=== PATIENT | female | born 1985 | race Caucasian/White ===

== ENCOUNTER 2017-06-29 02:28 | Inpatient (IN) | payer OTHER ==
[~2017-06-29] VITALS: Ht 166.4 cm; Wt 105.7 kg
[2017-06-29] MEDS ORDERED: Sodium Chloride LOK Flush 10 mL Syringe IVFLUSH PRN ×2 (08:00)
[2017-06-29] MEDS ORDERED: diphenhydrAMINE 50 mg Capsule PO PRN (08:00)
[2017-06-29] MEDS ORDERED: Oxytocin 30 Units/500 mL LR 30 UNITS in IV Premix 1 EACH IV PRN ×2 (08:00→18:20)
[2017-06-29] MEDS ORDERED: Ondansetron 2 mg/mL 2 mL Inj IVPUSH PRN (08:00)
[2017-06-29] MEDS ORDERED: Methylergonovine 0.2 mg/mL Inj IM PRN (08:00)
[2017-06-29] MEDS ORDERED: Carboprost 250 mCg/mL Inj IM PRN (08:00)
[2017-06-29] MEDS ORDERED: Oxytocin 10 Unit/mL Inj IM PRN (08:00)
[2017-06-29] MEDS ORDERED: Hemorrhage Kit, Post Partum XX ONE (08:00)
[2017-06-29] MEDS ORDERED: Misoprostol 25 mCg/0.25 Tablet VAGINAL SCH (08:00)
[2017-06-29 08:15] LABS: Mean Corpuscular Hemoglobin 29.7 pg (27.0-35.0); Mean Corpuscular Volume 85.4 fL (81-100)
--- NOTE | 2017-06-29 08:38 | HP ---
[address] [address] HISTORY AND PHYSICAL PATIENT: CARSON JURADO : 1985 MR#: [id number] ADMIT: 06/29/2017 JOB ID: [id number] CHIEF COMPLAINT: Presents for induction due to post term . HISTORY OF PRESENT ILLNESS: A 31-year-old, 1 para 0, with an EDC of June 17, 2017, based on LMP of September 09, 2016, and a concordant ultrasound December 01, 2016, putting her at 12 weeks and two days (for an EDC of June 13, 2017), who presents at 40-5/7 weeks gestation for planned induction. She is GBS negative by recent screening. She has had occasional contractions on the monitor last week, but not felt regularly. LABORATORIES: Blood type O positive. Rubella immune. Serology nonreactive. Hepatitis B surface antigen, HIV test negative at the onset of . Hematocrit at 33 weeks was 31.9, at 9-5/7 weeks was 39.5. Antibody screen negative, RPR nonreactive. Urine culture showed mixed sukhdeep at the onset of . An A1c was 5.1. She declined risk testing. Glucose tolerance test at 33 weeks showed a fasting of 75, a one hour of 162, a 2 hour of 109. Gonorrhea and Chlamydia cultures were negative in December of this year. She is GBS negative screened May 21, 2017. Pap was normal in December of this year. PAST GYNECOLOGIC HISTORY: 1 para 0. ISSUES: 1. Excess weight. 2. LATEX allergy. 3. Needs a Pap. 4. Prior low-lying placenta on an January 26 ultrasound, which resolved by a April 03 ultrasound. 5. Late to do her 2 hour glucose tolerance test. CURRENT MEDICATIONS: 1. vitamins, 1 tablet daily. 2. Ferrous sulfate 325 mg p.o. b.i.d. ALLERGIES: LATEX. SOCIAL HISTORY: She is . Nonsmoker. Stopped any alcohol once . Denies recreational drug use. FAMILY HISTORY: An older brother with thyroid cancer. Otherwise noncontributory. PAST SURGICAL HISTORY: Tonsillectomy at age 13. REVIEW OF SYSTEMS: She has felt movement. She is a bit tired. PHYSICAL EXAMINATION: Blood pressure 123/74, pulse is 74, other vitals are pending as the patient is just being admitted. Her cervical examination done by myself shows her to be 1 cm dilated, 50% effaced, -3 station, mid-position, moderate firmness. By Placido's done in the office, infant is in vertex position, this is confirmed by vaginal exam today. Estimated weight in the high 7 range. heart tracing shows a baseline in the 130s, with numerous accelerations, at least 15 x 15, consistent with a category 1 tracing. ASSESSMENT: 1. Gravid at 41-5/7 weeks. 2. Group B Strep negative. 3. Excess weight. 4. LATEX allergy; this causes itching. PLAN: We have been discussing the options, including observation versus induction, and the patient has already signed a consent for induction. In the office we reviewed the benefits and alternatives as well as risks of induction including distress and a higher risk of . The plan is for misoprostol and then further intervention based on clinical response, which could include additional misoprostol, balloon Barfield ripening, or oxytocin IV. The case was discussed with Dr. Jo, on-call for LINK TRAINER and backup. Questions answered. Plan reviewed with the patient, her and her mother. RINKU
--- NOTE | 2017-06-30 01:51 | PCM.HPANE ---
Patient Data Date of Service: Jun 30, 2017 Surgeon Admitting Provider:Chip Mccollum MD Attending Provider:Chip Mccollum MD Primary Care Physician:Chip Mccollum MD Other Provider: Reason for Visit Induction INDUCTION Ht/WT & BMI Height (Centimeters): 166.3 Weight (Kilograms): 105.7 Body Mass Index 38.2 Allergies Coded Allergies: latex (Unverified Allergy, Unknown, 06/29/17) Diabetes History Hx Diabetes?: No Medications Hypertension Medication: No Home Meds Incl Beta Lori: No History History of ENT Problems?: No HEENT History: Denies:: Abnormal Airway Denture Type: None Teeth Condition: Within Normal Limits Hx of Heart Problems?: No Cardiovascular History: Denies:: Hypertension Valvular Heart Disease Hx of Respiratory Problem?: No Respiratory History: Denies:: Asthma Hx Neurologic Problems?: No Neurological History: Denies:: Peripheral Neuropathy Seizures Hx of GI Problems?: No Hx of Problems?: No Female Hx: Positive for:: Currently Hx Musculoskeletal Problems?: No Smoking Status: Never Smoker Stop/Bang Risk Assessment Category Category 1A: Patient has history of documented sleep apnea, and HAS NOT received any narcotic, sedative or anesthesia administration during this stay. Category 1B: Patient has history of documented sleep apnea, and HAS received any narcotic , sedative or anesthesia administration during this stay Category 2: Patient has SUSPECTED Obstructive Sleep Apnea, and HAS received any narcotic , sedative or anesthesia administration during this stay. Category 3: Patient has SUSPECTED Obstructive Sleep Apnea and HAS NOT received narcotic, sedative or anesthesia administration during this stay. Category 4: Outpatient in Procedural Areas with known sleep apnea or who screen positive for High Risk via the STOP/BANG questionnaire. Exam Exam General Appearance: Alert, Oriented X3, Cooperative, No Acute Distress HEENT/AIRWAY: MP 2 Lungs: Clear to Auscultation, Normal Air Movement Heart: Exam Unremarkable, Regular Rate/Rhythm, No Murmurs/Rubs/Gallops Meds/Labs/Diagnostics Admission Meds Current Medications Misoprostol (Cytotec) 25 mcg Q4H VAGINAL Last administered on 06/29/17t 08:30; Start 06/29/17 at 08:00 Labs Test 06/29/17 08:00 White Blood Count 7.8th/mm3 (3.8-10.1) Red Blood Count 4.24mil/mm3 (3.90-5.20) Hemoglobin 12.6g/dL (12.0-15.6) Hematocrit 36.2% (35.0-46.0) Mean Corpuscular Volume 85.4fL (81-100) Mean Corpuscular Hemoglobin 29.7pg (27.0-35.0) Mean Corpuscular Hemoglobin Concent 34.8% (32.0-37.0) Red Cell Distribution Width 15.2% (12.3-15.4) Platelet Count 233bil/L (150-400) Plan Impression Patient chart reviewed, patient interviewed and anesthestic plan with risks, benefits, and alternatives discussed, and informed consent obtained. ASA Physical Status: ASA2 Mod Systemic Disease Anesthetic Plan: Epidural (labor) Javi Banks MD Jun 30, 2017 01:51
[2017-06-30] MEDS: fentaNYL-PF 50 mCg/mL 2 mL Inj IVPUSH PRN ×2 (02:08→04:39)
[2017-06-30] MEDS: Lactated Ringer's 1,000 ML IV PRN ×3 (02:08→10:53)
--- NOTE | 2017-06-30 07:40 | PROG NOTE ---
[address] [address] PROGRESS NOTE PATIENT: CARSON JURADO : 1985 MR#: [id number] ADMIT: 06/29/2017 JOB ID: [id number] DATE: 06/30/2017 SUBJECTIVE: I was contacted by nursing due to concerns about heart rate tracing. Patient had a period off the monitor around 9 p.m. yesterday. When placed back on the monitor heart rate baseline seemed to have lowered and there were some decelerations to as low as the 80s with recovery. Positional changes were attempted as well as oxygen and a fluid bolus. Patient is currently not receiving any additional augmentation or uterine stimulation. Last vital signs at 2345 show blood pressure 129/68, heart rate 62, temperature 97.0. She is a tired appearing, actively laboring young woman. Cervical examination is not repeated by myself and it was just reported by nursing at 4 cm, 75%, -3 station. heart rate trace lying shows a baseline that now appears to be in the 110, sometimes 120s at present. When I arrive there is improved long and short-term variability. A little after midnight there are several periods of what may be decelerations lasting 3-4 minutes down to the 80s with recovery. Variability persists throughout all of this. Tocometer shows regular contractions every 1-3 minutes which palpate moderately firm. ASSESSMENT: 1. Gravid at 41-6/7 weeks. 2. heart rate tracing baseline change with a question of some decelerations. Variability currently appears excellent and there are no recurrent or late decelerations. 3. Cervical change after one dose of misoprostol, she appears to be entering more active labor. PLAN: Given the adequate response to resuscitative measures, I feel she can continue to labor without change in plan. Strip was reviewed with Dr. Jo electronic semiconductor processor for [employer] UP OPERATOR who concurs this appears to be simply a change in baseline and the prior decelerations have resolved. Patient is contemplating an epidural and nursing will contact anesthesia if she decides to proceed with this. [facility]
--- NOTE | 2017-06-30 08:27 | PROG NOTE ---
[address] [address] PROGRESS NOTE PATIENT: CARSON JURADO : 1985 MR#: [id number] ADMIT: 06/29/2017 JOB ID: [id number] DATE: 06/29/2017 SUBJECTIVE: The patient was domonique too much today to receive a 2nd dose of misoprostol, but not making significant cervical change. When I come around 6 p.m., we discussed the option of Barfield balloon catheter, which she is agreeable in trying. The other option would be to simply wait more time or to go home and come back tomorrow for additional attempts at induction. She prefers to move forward at this point. PHYSICAL EXAMINATION: Last blood pressure at three this afternoon, 135/68, pulse 93. Alert, gravid woman, not in significant distress. Sterile speculum exam shows her cervix is quite posterior but reachable with a balloon Barfield catheter which is placed using sterile technique. Both balloons inflated to 80 cc. About 5 minutes after placement, the patient got up to go to the bathroom, noted the balloon had simply fallen out. Cervical examination at that point showed her to be 2 cm, 70% effaced, -3 station, vertex position. heart tracing continues to show a good long and short-term variability with accelerations. ASSESSMENT: 1. Gravid at 41-5/7 weeks. 2. Initial good response to misoprostol, but no significant cervical change despite frequent contractions. 3. Balloon Barfield catheter attempted but came out shortly thereafter. PLAN: Discussed options. Given that her contractions are spacing out, we discussed Cervidil overnight, followed by oxytocin augmentation. RINKU
--- NOTE | 2017-06-30 10:21 | PROG NOTE ---
[address] [address] PROGRESS NOTE PATIENT: CARSON JURADO : 1985 MR#: [id number] ADMIT: 06/29/2017 JOB ID: [id number] DATE: 06/30/2017 SUBJECTIVE: Overnight patient's contractions have spaced out. She remains 4 cm dilated the prior heart rate baseline drop seems to have returned to normal and prior decelerations have essentially resolved. The patient is tired, but her pain is adequately controlled. She did receive two doses of fentanyl and get some sleep overnight. PHYSICAL EXAMINATION: Blood pressure 137/77, pulse 80, temperature 97.9 Fahrenheit at 7:30 this morning. Tired-appearing gravid woman vaginal exam not repeated as it was just done by nursing, about half an hour ago showing her 4 cm, 70% effaced, -3 station. Membranes intact. heart tracing shows a category one strip with a baseline of 120 and numerous accelerations good long and short-term variability. Tocometer shows contractions every 5-7 minutes still palpating moderately firm. ASSESSMENT: 1. Gravid at 41 and 6/7 weeks. 2. GBS negative. 3. heart rate tracing baseline change around midnight with a question of some decelerations, this appears to have resolved. PLAN: The patient would like to continue to proceed towards delivery, primary indication is post term . Oxytocin augmentation is started at 2 milliunits per protocol; case discussed with Dr. Rodriguez on-call for backup. Case was also discussed yesterday with Dr. Jo and who concurred with ripening followed by augmentation. I contemplated rupture of membranes, however, given the baseline change overnight decided to leave them intact for now. If she does not make clinical progress, this would be an additional option to move towards delivery. RINKU
[2017-06-30] MEDS ORDERED: fentaNYL 2 mCg/mL-Bupivicaine 0.125% 100 mL Premix EPIDURAL ONE (14:52)
[2017-06-30] MEDS ORDERED: fentaNYL-PF 50 mCg/mL 2 mL Inj IVPUSH PRN (15:05)
[2017-06-30] MEDS ORDERED: Atropine 1 mg/10 mL (Code) Syringe IVPUSH PRN (15:05)
[2017-06-30] MEDS ORDERED: Lactated Ringer's 1,000 ML IV SCH (15:05)
[2017-06-30] MEDS ORDERED: Lactated Ringer's 500 ML IV ONE (15:05)
[2017-06-30] MEDS ORDERED: Ondansetron 2 mg/mL 2 mL Inj IVPUSH PRN (15:05)
[2017-06-30] MEDS ORDERED: EPHEDrine Sulfate 50 mg/mL Inj IVPUSH PRN (15:05)
--- NOTE | 2017-06-30 15:05 | PCM.HPANE ---
Patient Data Date of Service: Jun 30, 2017 Surgeon Admitting Provider:Chip Mccollum MD Attending Provider:Chip Mccollum MD Primary Care Physician:Chip Mccollum MD Other Provider: Reason for Visit Induction INDUCTION Ht/WT & BMI Height (Centimeters): 166.3 Weight (Kilograms): 105.7 Body Mass Index Allergies Coded Allergies: latex (Unverified Allergy, Unknown, 06/29/17) Past Anesthesia History Anesthesia History: Denies:: Abnormal Airway, Anesthesia Reactions, Difficult Intubation, Fam Anesthesia Reaction, Fam Malignant Hypertherm, Malignant Hyperthermia Diabetes History Hx Diabetes?: No Medications Hypertension Medication: No Home Meds Incl Beta Lori: No History History of ENT Problems?: No HEENT History: Denies:: Abnormal Airway Denture Type: None Teeth Condition: Within Normal Limits Hx of Heart Problems?: No Cardiovascular History: Denies:: Hypertension Valvular Heart Disease Hx of Respiratory Problem?: No Respiratory History: Denies:: Asthma Hx Neurologic Problems?: No Neurological History: Denies:: Peripheral Neuropathy Seizures Hx of GI Problems?: No Hx of Problems?: No HX of Peritoneal Dialysis: No Female Hx: Positive for:: Currently Hx Musculoskeletal Problems?: No Hx of Psycho/Social Problems?: No Hx Surgeries?: No Hx Diabetes: No Smoking Status: Never Smoker Stop/Bang Treated for Sleep Apnea?: No Do You Have a CPAP Machine?: No ANGELA Risk Assessment: Low Risk, <3 Yes Risk Assessment Category Category 1A: Patient has history of documented sleep apnea, and HAS NOT received any narcotic, sedative or anesthesia administration during this stay. Category 1B: Patient has history of documented sleep apnea, and HAS received any narcotic , sedative or anesthesia administration during this stay Category 2: Patient has SUSPECTED Obstructive Sleep Apnea, and HAS received any narcotic , sedative or anesthesia administration during this stay. Category 3: Patient has SUSPECTED Obstructive Sleep Apnea and HAS NOT received narcotic, sedative or anesthesia administration during this stay. Category 4: Outpatient in Procedural Areas with known sleep apnea or who screen positive for High Risk via the STOP/BANG questionnaire. Exam Exam General Appearance: Alert, Oriented X3, Cooperative, No Acute Distress HEENT/AIRWAY: MP 2 Lungs: Clear to Auscultation, Normal Air Movement Heart: Exam Unremarkable, Regular Rate/Rhythm, No Murmurs/Rubs/Gallops Meds/Labs/Diagnostics Labs Test 06/29/17 08:00 White Blood Count 7.8th/mm3 (3.8-10.1) Red Blood Count 4.24mil/mm3 (3.90-5.20) Hemoglobin 12.6g/dL (12.0-15.6) Hematocrit 36.2% (35.0-46.0) Mean Corpuscular Volume 85.4fL (81-100) Mean Corpuscular Hemoglobin 29.7pg (27.0-35.0) Mean Corpuscular Hemoglobin Concent 34.8% (32.0-37.0) Red Cell Distribution Width 15.2% (12.3-15.4) Platelet Count 233bil/L (150-400) Plan Impression Patient chart reviewed, patient interviewed and anesthestic plan with risks, benefits, and alternatives discussed, and informed consent obtained. NPO per Anesth. Guidelines: Yes ASA Physical Status: ASA2 Mod Systemic Disease Anesthetic Plan: Epidural Bene/Risks/Altern/Consents: Yes HP Complete Prior to Induction: Yes Manolo Mejia MD Jun 30, 2017 15:05
[2017-06-30] MEDS ORDERED: Sodium Chloride LOK Flush 10 mL Syringe IVFLUSH SCH (16:30)
[2017-06-30] MEDS: fentaNYL 2 mCg/mL-Bupiv 0.125% 100 ML EPIDURAL SCH (20:20)
[2017-07-01] MEDS: fentaNYL 2 mCg/mL-Bupiv 0.125% 100 ML EPIDURAL SCH (01:41)
[2017-07-01] MEDS ORDERED: Witch Hazel-Glycerin Pads TOPICAL PRN (03:05)
[2017-07-01] MEDS ORDERED: oxyCODONE-Acetamin 5-325 mg Tablet PO PRN (03:05)
[2017-07-01] MEDS ORDERED: Methylergonovine 0.2 mg/mL Inj IM PRN (03:05)
[2017-07-01] MEDS ORDERED: Lactated Ringer's 1,000 ML IV SCH (03:05)
[2017-07-01] MEDS ORDERED: Carboprost 250 mCg/mL Inj IM PRN (03:05)
[2017-07-01] MEDS ORDERED: LANOlin HPA 7 Gm Ointment TOPICAL PRN (03:05)
[2017-07-01] MEDS ORDERED: Hemorrhage Kit, Post Partum XX ONE (03:05)
[2017-07-01] MEDS ORDERED: Oxytocin 10 Unit/mL Inj IM PRN (03:05)
[2017-07-01] MEDS ORDERED: HYDROcodone-APAP 5-325 mg Tablet PO PRN (03:05)
[2017-07-01] MEDS ORDERED: Oxytocin 30 Units/500 mL LR 30 UNITS in IV Premix 1 EACH IV PRN (03:05)
--- NOTE | 2017-07-01 03:35 | PROG NOTE ---
[address] [address] PROGRESS NOTE PATIENT: CARSON JURADO : 1985 MR#: [id number] ADMIT: 06/29/2017 JOB ID: [id number] DATE: 07/01/2017 DELIVERY NOTE: Delivery position: CINTIA. Delivery weight: Pending. Apgars: Pending, but this is a vigorous with good tone, cry and color. Umbilical cord: Three-vessel cord, normal length and appearance. Placenta: Central cord insertion. Large normal placenta consistent with a large . No evidence of retained fragments. Estimated blood loss: 400 cc. Lacerations: 2nd borderline 3rd degree (3A) perineal. Anesthesia: Epidural. Complications: None significant. The patient was found to be complete with an increasing urge to push. She pushed a little over an hour, bringing the head down. head delivered. No nuchal cord was identified. Body and shoulders were a little slow to deliver due to the size of the , but there was clearly no shoulder dystocia. was handed off to mother and nursing for additional stimulation and quickly cried with good tone and improving color. Cord was clamped and cut after a 1 minute delay. Cord blood collected and sent. Perineum was inspected and showed a 2nd-degree perineal tear with perhaps mild entry into the rectal capsule with some fibers visible for what I would almost call a 3A tear, 2-0 Vicryl sutures were placed to bolster these rectal fibers and then repair was completed using 2-0 Vicryl in standard fashion. Several small vaginal arterials that were bleeding stopped once the repair was complete. Placenta then delivered with gentle traction on the cord. There was one single gush which slowed after fundal massage and IV oxytocin. Rectal exam performed after repair and delivery showed no disruption of the sphincter otherwise and no palpable through and through sutures. Sponge and needle counts are correct post delivery. The patient plans to breast feed. She is stable post delivery, with routine care anticipated.
[2017-07-01] MEDS: Benzocaine (Dermoplast) 20% 60 Gm Spray TOPICAL PRN (04:30)
[2017-07-01] MEDS: Ascorbic Acid 500 mg Tablet PO SCH ×2 (13:32→20:42)
[2017-07-02 07:28] LABS: Mean Corpuscular Hemoglobin 29.3 pg (27.0-35.0); Mean Corpuscular Volume 88.3 fL (81-100)
--- NOTE | 2017-07-02 08:02 | PCM.DIOB ---
Obstetrical Disch Instruction Date of Service: Jul 02, 2017 Dates of Hospitalization Date of Hospital Admission Jun 29, 2017 at 07:07 Providers Admitting Physician: Chip Mccollum MD Primary Care Physician: Chip Mccollum MD Attending Physician: Chip Mccollum MD Discharge Diagnosis Problems: (1) Vaginal delivery Status: Acute ICD Code: O80 Diet Discharge Diet: No restrictions Activity Discharge Activity-General: Pelvic Rest for 6 weeks Dressing and Incisional Care Hygiene: May shower Follow Up Plan Follow-up Provider (F9): Chip Mccollum MD Follow-up appointment: Weeks (6) Call your provider for: Fever or Chills, Shortness of breath, Heavy vaginal bleeding, Excessive constipation, Red painful breasts Chip Mccollum MD Jul 02, 2017 08:02
[2017-07-02] MEDS ORDERED: IBUP-1827 PO (08:10)
[2017-07-02] MEDS ORDERED: FERR-74 PO (08:10)
[2017-07-02] MEDS ORDERED: Ascorbic Acid PO (08:10)
[2017-07-02] MEDS ORDERED: PREN-12 PO (08:10)
[2017-07-02] MEDS ORDERED: DOCU-41 PO (08:10)
[2017-07-02] MEDS ORDERED: OXYC1TAB24 PO (08:10)
--- NOTE | 2017-07-02 09:05 | DIS ---
[address] [address] DISCHARGE SUMMARY PATIENT: CARSON JURADO : 1985 MR#: [id number] ADMIT: 06/29/2017 JOB ID: [id number] DIS: 07/02/2017 DISCHARGE DIAGNOSES: 1. Vaginal delivery at term to a 4824 g viable male. 2. anemia, acute, related to blood loss after delivery. 3. Second borderline third-degree perineal tear. 4. Excess weight. 5. LATEX allergy which causes itching. 6. Prior low lying placenta which resolved during her ultrasound. 7. Large for gestational age infant. ALLERGIES: LATEX causes itching. DISCHARGE MEDICATIONS: 1. vitamins 1 tablet daily. 2. Ferrous sulfate 325 mg p.o. b.i.d. 3. Vitamin C 500 mg p.o. b.i.d. 4. Ibuprofen 600 mg q.6 hours p.r.n. pain. 5. Oxycodone/acetaminophen 5/325 mg 1-2 tablets q.4 hours p.r.n. pain, #8 with no refills. DISCHARGE INSTRUCTIONS: 1. Followup with Dr. Mccollum in six weeks. 2. Call for increased bleeding, fevers, shortness of breath or excessive breast pain. 3. Pelvic rest for six weeks. 4. May shower or bathe ad william. HOSPITAL COURSE: This is a 31-year-old, now 1, para 1, who presented at 41 and 5/7 weeks for a planned induction due to post term . She received misoprostol, was domonique too much for additional medication. A balloon catheter was attempted but fell out. She then dilated to 4 cm, oxytocin was added and she had a slow but steady clinical progression with cervical change. She was found to be complete and pushed for a little over an hour. She delivered a 10 pound 10 ounce male in the CINTIA position over intact perineum resulting in a second, borderline third degree, tear which was repaired. she is caring for her infant, ambulating and has voided. She is sore "all over" but has reasonable pain control with ibuprofen and the occasional oxycodone. She is eager to go home. Will follow up in my office in six weeks, sooner if problems. Her hematocrit was 27.1, down from 36.2, so I will have her take iron for six weeks. She does plan to breast feed and has seen .
[2017-07-02] MEDS: Benzocaine (Dermoplast) 20% 60 Gm Spray TOPICAL PRN (09:08)
[2017-07-02] MEDS: Ascorbic Acid 500 mg Tablet PO SCH (09:09)
== END 2017-07-02 09:23 | disposition home or self-care (01) | DRG 775 ==
LOC: FBC 07:07
PROVIDERS: ADMIT Family Medicine; ATTEND Family Medicine
PROC: 0KQM0ZZ Repair Perineum Muscle, Open Approach (ICD-10-PCS; 2017-06-30)
PROC: 3E0P7GC Introduction of Other Therapeutic Substance into Female Reproductive, Via Natural or Artificial Opening (ICD-10-PCS; 2017-06-30)
PROC: 3E033VJ Introduction of Other Hormone into Peripheral Vein, Percutaneous Approach (ICD-10-PCS; 2017-06-30)
PROC: 10E0XZZ Delivery of Products of Conception, External Approach (ICD-10-PCS; principal; 2017-07-01)
DX: O48.0 Post-term pregnancy (principal); D62 Acute posthemorrhagic anemia; O70.1 Second degree perineal laceration during delivery; O90.81 Anemia of the puerperium; Z3A.41 41 weeks gestation of pregnancy; Z37.0 Single live birth; Z91.040 Latex allergy status